=== PATIENT | male | born 1995 | race African-American/Black ===

== ENCOUNTER 2017-03-06 06:56 | Emergency (ER) | payer MEDICAID ==
[~2017-03-06] VITALS: Ht 182.9 cm; Wt 93.5 kg
[2017-03-06] MEDS ORDERED: TAM75C PO (08:39)
[2017-03-06] MEDS ORDERED: IBUP-1984 PO (08:39)
[2017-03-06 08:52] VITALS: BP 128/65
== END 2017-03-06 08:53 | disposition home or self-care (01) ==
LOC: ER 06:58
DX: R05 Cough (principal); R50.9 Fever, unspecified; J02.9 Acute pharyngitis, unspecified; F17.200 Nicotine dependence, unspecified, uncomplicated; F15.10 Other stimulant abuse, uncomplicated
CPT/HCPCS: 71046; 99284

== ENCOUNTER 2017-03-13 16:49 | Emergency (ER) | payer MEDICAID ==
[~2017-03-13] VITALS: Ht 182.9 cm; Wt 95.1 kg
[~2017-03-13 16:49] MED LIST: IBUP-1984 PO
[2017-03-13 17:22] LABS: BASOPHILS % (AUTO) 0.3 % (0-1); EOSINOPHILS # (AUTO) 0.2 X10'3 (0-0.9); EOSINOPHILS % (AUTO) 2.5 % (0-6); HEMATOCRIT 40.3 % (42.0-52.0); HEMOGLOBIN 14.1 g/dl (14.0-17.9); LYMPHOCYTES % (AUTO) 25.3 % (21-51); MEAN CORPUSCULAR HEMOGLOBIN 30.5 PG (27.0-31.0); MEAN CORPUSCULAR HGB CONC 35.1 % (33.0-36.5); MEAN CORPUSCULAR VOLUME 87.1 FL (78-98); MONOCYTES # (AUTO) 0.8 X10'3 (0-0.9); NEUTROPHILS % (AUTO) 61.9 % (42-75); PLATELET COUNT 273 X10'3 (140-440); RED BLOOD COUNT 4.63 X10'6 (4.70-6.10); RED CELL DISTRIBUTION WIDTH 13.9 % (11.5-14.5); WHITE BLOOD COUNT 8.1 X10'3 (4.5-11.0)
[2017-03-13 17:33] LABS: PROTHROMBIN TIME 9.9 SECONDS (9.0-12.0)
[2017-03-13 17:37] LABS: ALANINE AMINOTRANSFERASE 70 U/L (12-78); ALBUMIN 4.1 G/DL (3.4-5.0); ALBUMIN/GLOBULIN RATIO 1.1 (1.1-1.5); ALKALINE PHOSPHATASE 158 IU/L (46-116); ANION GAP 9 (8-16); ASPARTATE AMINO TRANSFERASE 51 U/L (10-37); BILIRUBIN,TOTAL 0.4 MG/DL (0.1-1.0); BLOOD UREA NITROGEN 15 MG/DL (7-18); BUN/CREATININE RATIO 16.7 (5.4-32.0); CHLORIDE 108 MMOL/L (99-107); GLUCOSE 99 MG/DL (70-104); POTASSIUM 4.3 MMOL/L (3.5-5.1); SODIUM 143 MMOL/L (135-145); TOTAL CARBON DIOXIDE 26.4 MMOL/L (24-32); eGFR > 90 ML/MIN
[2017-03-13] MEDS ORDERED: dexamethasone sod phosphate 10mg/ml inj PO STA (18:15)
[2017-03-13] MEDS ORDERED: AZIT250T2 PO (18:18)
[2017-03-13] MEDS ORDERED: BENZ-16 PO (18:18)
[2017-03-13 18:38] LABS: CLARITY,URINE CLEAR (Clear); COLOR,URINE YELLOW (Yellow); GLUCOSE, URINE NEGATIVE (Neg); KETONES,URINE TRACE mg/dl (Neg); LEUKOCYTE ESTERASE ,URINE NEGATIVE (Neg); NITRITES, URINE NEGATIVE (Neg); OCCULT BLOOD,URINE NEGATIVE (Neg); PROTEIN,URINE NEGATIVE (Neg); UROBILINOGEN,URINE 0.2 E.U/dL (0.2-1.0)
[2017-03-13 18:47] LABS: UA COLLECTION TYPE CLN CATCH MIDSTREAM
[2017-03-13 18:52] VITALS: BP 135/79
== END 2017-03-13 18:54 | disposition home or self-care (01) ==
LOC: ER 16:51
DX: J06.9 Acute upper respiratory infection, unspecified (principal); K92.0 Hematemesis
CPT/HCPCS: 36415; 80053; 81003; 85025; 85610; 99284; J1100

== ENCOUNTER 2020-12-13 09:21 | Emergency (ER) | payer MEDICAID ==
[~2020-12-13] VITALS: Ht 182.9 cm; Wt 109.1 kg
[2020-12-13 09:58] VITALS: BP 140/87
== END 2020-12-13 11:44 | disposition home or self-care (01) ==
LOC: ER 09:23
DX: Z13.89 Encounter for screening for other disorder (principal); R19.09 Other intra-abdominal and pelvic swelling, mass and lump; Z72.89 Other problems related to lifestyle
CPT/HCPCS: 36415; 86592; 87491; 99283

== ENCOUNTER 2021-05-06 10:39 | Emergency (ER) | payer MEDICAID ==
[~2021-05-06] VITALS: Ht 180.3 cm; Wt 109.1 kg
[2021-05-06 10:46] VITALS: BP 139/92
[2021-05-06] MEDS ORDERED: TETanus/Pertussis (Acell)/Diphther VAC/PF (Tdap-Adult) 0.5ml syringe IMVAC ONE (11:15)
== END 2021-05-06 12:30 | disposition home or self-care (01) ==
LOC: ER 10:40
DX: S62.339A Displaced fracture of neck of unspecified metacarpal bone, initial encounter for closed fracture (principal); W26.8XXA Contact with other sharp object(s), not elsewhere classified, initial encounter; Y93.89 Activity, other specified; Y92.89 Other specified places as the place of occurrence of the external cause; Y99.8 Other external cause status
CPT/HCPCS: 29125; 73130; 90471; 90715; 99283

== ENCOUNTER 2021-05-25 08:21 | Emergency (ER) | payer MEDICAID ==
[~2021-05-25] VITALS: Ht 182.9 cm; Wt 108.2 kg
[2021-05-25 09:55] VITALS: BP 170/80
== END 2021-05-25 09:56 | disposition home or self-care (01) ==
LOC: ER 08:22
DX: J06.9 Acute upper respiratory infection, unspecified (principal); Z20.822 Contact with and (suspected) exposure to COVID-19; R09.81 Nasal congestion; J34.89 Other specified disorders of nose and nasal sinuses; R05.9 Cough, unspecified; F12.90 Cannabis use, unspecified, uncomplicated; Z72.89 Other problems related to lifestyle
CPT/HCPCS: 71045; 87635; 99284; C9803

== ENCOUNTER 2021-05-28 09:30 | Emergency (ER) | payer MEDICAID ==
[~2021-05-28] VITALS: Ht 182.9 cm; Wt 109.1 kg
--- NOTE | 2021-05-28 09:51 | NUR ---
geoffrey contacted. . case was opened yesterday and pt does not request to speak with officer again at this time
[2021-05-28] MEDS ORDERED: TETRACAINE 0.5% 4 ML OPHTHALMIC DROPS RIGHTEYE ONE (12:40)
[2021-05-28] MEDS ORDERED: TETRACAINE 0.5% 4 ML OPHTHALMIC DROPS LEFTEYE ONE (12:45)
[2021-05-28] MEDS ORDERED: proparacaine 0.5% ophthalmic drops 15ml EACHEYE ONE (12:45)
[2021-05-28] MEDS ORDERED: proparacaine 0.5% ophthalmic drops 15ml LEFTEYE ONE (12:45)
[2021-05-28 13:10] VITALS: BP 141/93
--- NOTE | 2021-05-28 13:11 | NUR ---
Pt also complaining about "breathing problem." notified. O2 sats 97% RA.
[2021-05-28] MEDS ORDERED: FLUT1DIS INH ×2 (14:05)
[2021-05-28] MEDS ORDERED: ipratropium/albuterol 3ml nebule ONE (14:07)
[2021-05-28] MEDS ORDERED: ipratropium/albuterol 3ml nebule NEB PRN (14:10)
[2021-05-28] MEDS ORDERED: ipratropium/albuterol 3ml nebule NEB ONE (14:10)
== END 2021-05-28 14:36 | disposition home or self-care (01) ==
LOC: ER 09:31
DX: S01.111A Laceration without foreign body of right eyelid and periocular area, initial encounter (principal); J20.9 Acute bronchitis, unspecified; H53.8 Other visual disturbances; F12.90 Cannabis use, unspecified, uncomplicated; Z87.81 Personal history of (healed) traumatic fracture; Z72.89 Other problems related to lifestyle; Y04.0XXA Assault by unarmed brawl or fight, initial encounter; Z91.81 History of falling; Y93.89 Activity, other specified; Y92.89 Other specified places as the place of occurrence of the external cause; Y99.8 Other external cause status
CPT/HCPCS: 71045; 94640; 94760; 99284

== ENCOUNTER 2021-05-31 19:24 | Emergency (ER) | payer MEDICAID ==
[~2021-05-31] VITALS: Ht 182.9 cm; Wt 108.0 kg
[~2021-05-31 19:24] MED LIST changes: +FLUT1DIS INH; -IBUP-1984 PO
[2021-05-31 20:01] VITALS: BP 160/90
== END 2021-05-31 20:59 | disposition left against medical advice (07) ==
LOC: ER 19:26
DX: S61.215A Laceration without foreign body of left ring finger without damage to nail, initial encounter (principal); Z53.21 Procedure and treatment not carried out due to patient leaving prior to being seen by health care provider; X58.XXXA Exposure to other specified factors, initial encounter; Y93.9 Activity, unspecified; Y92.9 Unspecified place or not applicable; Y99.9 Unspecified external cause status

== ENCOUNTER 2021-06-01 10:53 | Emergency (ER) | payer MEDICAID ==
[~2021-06-01] VITALS: Ht 182.9 cm; Wt 106.0 kg
[2021-06-01 11:02] VITALS: BP 124/62
[2021-06-01] MEDS ORDERED: LIDOcaine 1% 30ml preserv. free vial IJ ONE (11:55)
[2021-06-01] MEDS ORDERED: TETanus/Pertussis (Acell)/Diphther VAC/PF (Tdap-Adult) 0.5ml syringe IMVAC ONE (12:45)
== END 2021-06-01 13:04 | disposition home or self-care (01) ==
LOC: ER 10:54
DX: S61.216A Laceration without foreign body of right little finger without damage to nail, initial encounter (principal); F17.200 Nicotine dependence, unspecified, uncomplicated; F12.90 Cannabis use, unspecified, uncomplicated; Z72.89 Other problems related to lifestyle; Z87.81 Personal history of (healed) traumatic fracture; Z79.899 Other long term (current) drug therapy; W26.8XXA Contact with other sharp object(s), not elsewhere classified, initial encounter; Y93.89 Activity, other specified; Y92.89 Other specified places as the place of occurrence of the external cause; Y99.8 Other external cause status
CPT/HCPCS: 29130; 90471; 90715; 99283

== ENCOUNTER 2022-05-25 22:14 | Emergency (ER) | payer MEDICAID ==
[~2022-05-25] VITALS: Ht 182.9 cm; Wt 100.2 kg
[2022-05-25 22:20] VITALS: BP 141/70
[2022-05-25] MEDS ORDERED: AMOX-100 PO (22:56)
[2022-05-25] MEDS ORDERED: IBUP-1986 PO (22:56)
== END 2022-05-25 23:05 | disposition home or self-care (01) ==
LOC: ER 22:15
DX: K04.7 Periapical abscess without sinus (principal); F12.10 Cannabis abuse, uncomplicated; Z87.81 Personal history of (healed) traumatic fracture; Z79.899 Other long term (current) drug therapy
CPT/HCPCS: 99283